=== PATIENT | male | born 1955 | race Caucasian/White ===

== ENCOUNTER 2019-01-11 05:48 | Observation (INO) | payer OTHER ==
[~2019-01-11] VITALS: Ht 180.3 cm; Wt 91.7 kg
[2019-01-11] MEDS ORDERED: ASPIRIN 81 MG CHEW (CHILDREN'S ASA) ONE (06:00)
[2019-01-11 06:13] LABS: BASOPHILS # (AUTO) 0.1 10^3/uL (0.0-0.1); BASOPHILS % (AUTO) 1 % (0-10); EOSINOPHILS # (AUTO) 0.3 10^3/uL (0.0-0.3); EOSINOPHILS % (AUTO) 4 % (0-10); HEMATOCRIT 46 % (40-54); HEMOGLOBIN 15.4 G/DL (13.3-17.7); LYMPHOCYTES # (AUTO) 2.1 X 10^3 (1.0-4.0); LYMPHOCYTES % (AUTO) 32 % (12-44); MEAN CORPUSCULAR HEMOGLOBIN 29 PG (25-34); MEAN CORPUSCULAR HGB CONC 33 G/DL (32-36); MEAN CORPUSCULAR VOLUME 86 FL (80-99); MEAN PLATELET VOLUME 10.1 FL (7.4-10.4); MONOCYTES # (AUTO) 0.7 X 10^3 (0.0-1.0); MONOCYTES % (AUTO) 10 % (0-12); NEUTROPHILS # (AUTO) 3.5 X 10^3 (1.8-7.8); NEUTROPHILS % (AUTO) 53 % (42-75); PLATELET COUNT 258 10^3/uL (130-400); RED CELL DISTRIBUTION WIDTH 14.8 % (10.0-14.5); WHITE BLOOD COUNT 6.6 10^3/uL (4.3-11.0)
--- NOTE | 2019-01-11 06:13 | ED Chest Pain ---
General Stated Complaint: CHEST PAIN Source: patient, spouse Exam Limitations: no limitations History of Present Illness Date Seen by Provider: Jan 11, 2019 Time Seen by Provider: 05:55 Initial Comments The patient presents to ER by private conveyance with chief complaint that he was awoken after rolling over to some 8-9 out of 10 sharp pain in his left chest and radiating to his left shoulder and arm causing some weakness and numbness feeling. He said the pain does not miss any worse on moving his arm or shoulder and is not reproducible by pushing on his chest. 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 His pain started at 0445 and had pretty much ended by the time he arrived to the ER. It was not made worse by exertion. He has no shortness of breath, cough and it is not made worse on deep inspiration. He has no primary history of coronary artery disease but he does have family history but no early onset coronary artery disease. He does not smoke cigarettes nor have diabetes or hypertension but he does take medicines for cholesterol and hypothyroidism. He does not take an aspirin daily. Many years ago he was [place] and had some similar pain to this and because he did not have suspicion insurance he truncated his workup at that time to just an echocardiogram and did not get a stress test done. He says the echocardiogram was normal and that's why he elected not to proceed. He says he has chronic history of bad shoulders but no surgery on his shoulders. He does have a history of acid reflux and so he took 2 chewable Pepto-Bismol this morning but it made no difference in his symptoms. No history of lung disease. His primary care provider is Dr. Nunes. Allergies and Home Medications Allergies Coded Allergies: Penicillins (Verified Allergy, Unknown, 01/11/19) Sulfa (Sulfonamide Antibiotics) (Verified Allergy, Unknown, 01/11/19) Patient Home Medication List Home Medication List Reviewed: Yes Review of Systems Review of Systems Constitutional: No chills, No fever EENTM: No Blurred Vision, No Double Vision Respiratory: Denies Cough, Denies Shortness of Air Cardiovascular: See HPI, Chest Pain; Denies Edema, Denies Irregular Heart Rate , Denies Lightheadedness, Denies Palpitations, Denies Syncope Gastrointestinal: Denies Constipated, Denies Diarrhea, Denies Nausea Genitourinary: Denies Discharge, Denies Drainage Musculoskeletal: No back pain, No joint pain Skin: No pruritus, No rash Psychiatric/Neurological: Denies Anxiety, Denies Depressed, Denies Headache Past Znwdpnt-Kmzahs-Wltpsy Hx Patient Social History Alcohol Use: Denies Use Recreational Drug Use: No Smoking Status: Never a Smoker Recent Foreign Travel: No Contact w/Someone Who Travel: No Physical Exam Vital Signs Vital Signs - First Documented 01/11/19 05:51 Temp 96.3 Pulse 53 Resp 20 B/P (MAP) 159/99 (119) Pulse Ox 97 O2 Delivery Room Air Capillary Refill : Height, Weight, BMI Height: '" Weight: lbs. oz. kg; BMI Method: General Appearance: No Apparent Distress, WD/WN HEENT: PERRL/EOMI, Pharynx Normal, Moist Mucous Membranes Neck: Full Range of Motion, Normal Inspection, Non Tender, Supple Respiratory: Chest Non Tender, Lungs Clear, Normal Breath Sounds, No Accessory Muscle Use, No Respiratory Distress Cardiovascular: Regular Rate, Rhythm, No Edema, Normal Peripheral Pulses Gastrointestinal: Normal Bowel Sounds, Non Tender, Soft Extremity: Normal Capillary Refill, Normal Inspection, Normal Range of Motion, Non Tender, No Calf Tenderness, No Pedal Edema Neurologic/Psychiatric: Alert, Oriented x3, No Motor/Sensory Deficits Skin: Normal Color, Warm/Dry Progress/Results/Core Measures Results/Orders Lab Results Laboratory Tests Test 01/11/19 05:58 Range/Units White Blood Count 6.6 4.3-11.0 10^3/uL Red Blood Count 5.37 4.35-5.85 10^6/uL Hemoglobin 15.4 13.3-17.7 G/DL Hematocrit 46 40-54 % Mean Corpuscular Volume 86 80-99 FL Mean Corpuscular Hemoglobin 29 25-34 PG Mean Corpuscular Hemoglobin Concent 33 32-36 G/DL Red Cell Distribution Width 14.8 H 10.0-14.5 % Platelet Count 258 130-400 10^3/uL Mean Platelet Volume 10.1 7.4-10.4 FL Neutrophils (%) (Auto) 53 42-75 % Lymphocytes (%) (Auto) 32 12-44 % Monocytes (%) (Auto) 10 0-12 % Eosinophils (%) (Auto) 4 0-10 % Basophils (%) (Auto) 1 0-10 % Neutrophils # (Auto) 3.5 1.8-7.8 X 10^3 Lymphocytes # (Auto) 2.1 1.0-4.0 X 10^3 Monocytes # (Auto) 0.7 0.0-1.0 X 10^3 Eosinophils # (Auto) 0.3 0.0-0.3 10^3/uL Basophils # (Auto) 0.1 0.0-0.1 10^3/uL Prothrombin Time 12.7 12.2-14.7 SEC INR Comment 0.9 0.8-1.4 Activated Partial Thromboplast Time 30 24-35 SEC Sodium Level 139 135-145 MMOL/L Potassium Level 4.2 3.6-5.0 MMOL/L Chloride Level 109 H 98-107 MMOL/L Carbon Dioxide Level 19 L 21-32 MMOL/L Anion Gap 11 5-14 MMOL/L Blood Urea Nitrogen 14 7-18 MG/DL Creatinine 0.99 0.60-1.30 MG/DL Estimat Glomerular Filtration Rate > 60 BUN/Creatinine Ratio 14 Glucose Level 101 70-105 MG/DL Calcium Level 8.7 8.5-10.1 MG/DL Corrected Calcium 8.5 8.5-10.1 MG/DL Magnesium Level 2.4 1.8-2.4 MG/DL Total Bilirubin 0.8 0.1-1.0 MG/DL Aspartate Amino Transf (AST/SGOT) 17 5-34 U/L Alanine Aminotransferase (ALT/SGPT) 25 0-55 U/L Alkaline Phosphatase 84 40-136 U/L Myoglobin 36.7 10.0-92.0 NG/ML Troponin I < 0.028 <0.028 NG/ML Total Protein 7.3 6.4-8.2 GM/DL Albumin 4.2 3.2-4.5 GM/DL My Orders Orders - ERIBERTO CARMONA Aspirin Chewable Tablet (Baby Aspirin Ch (01/11/19 06:00) Cbc With Automated Diff (01/11/19 06:04) Magnesium (01/11/19 06:04) Chest 1 View, Ap/Pa Only (01/11/19 06:04) Ekg Tracing (01/11/19 06:04) Cardiac Profile 1 (01/11/19 06:04) Comprehensive Metabolic Panel (01/11/19 06:04) Myoglobin Serum (01/11/19 06:04) Protime With Inr (01/11/19 06:04) Partial Thromboplastin Time (01/11/19 06:04) O2 (01/11/19 06:04) Monitor-Rhythm Ecg Trace Only (01/11/19 06:04) Lipid Panel (01/12/19 06:00) Saline Lock/Iv-Start (01/11/19 06:04) BNP (01/11/19 06:04) Aspirin Chewable Tablet (Baby Aspirin Ch (01/11/19 06:15) Medications Given in ED Current Medications Medications Dose Ordered Sig/Shelly Route Start Time Stop Time Status Last Admin Dose Admin Aspirin 324 mg ONCE ONCE PO 01/11/19 06:15 01/11/19 06:16 DC 01/11/19 06:02 324 MG Vital Signs/I&O 01/11/19 05:51 Temp 96.3 Pulse 53 Resp 20 B/P (MAP) 159/99 (119) Pulse Ox 97 O2 Delivery Room Air Progress Progress Note : Time: 06:14 Progress Note We will give 324 mg aspirin to chew and swallow. He is not currently having any pain so we will not give any nitroglycerin. A GI cocktail will not be very diagnostic but he did try some antacids with no benefit. He has no evidence of respiratory distress, tachycardia, decreased oxygen saturation or clinical history to suggest a pulmonary embolism. His pain is intermittent. While we were talking he did have a momentary brief spike of pain lasting just a few seconds and then going away. It was not movement or exertion. ED ACS is 21 points. Not low risk. This patient is not a candidate for early discharge and should receive a standard chest pain evaluation with delayed troponin testing. Initial ECG Impression Date: Jan 11, 2019 Initial ECG Impression Time: 05:55 Initial ECG Rate: 57 Initial ECG Rhythm: Normal Sinus Initial ECG Intervals: Normal Initial ECG Impression: Normal Initial ECG Comparisson: No Previous ECG Available Comment No ST elevation or depression. Diagnostic Imaging Diagonstic Imaging: Xray Plain Films/CT/US/NM/MRI: chest (1v) Comments No acute cardiopulmonary findings. [facility] [place], [place] NAME: MASHA [facility]URENT [facility] REC#: [id number] PT STATUS: REG ER : 1955 PHYSICIAN: ERIBERTO CARMONA MD ADMIT DATE: 01/11/19/ER Draft Date of Exam:01/11/19 CHEST 1 VIEW, AP/PA ONLY INDICATION: Chest pain. TECHNIQUE: Single view chest 6:13 AM. CORRELATION STUDY: None FINDINGS: The heart size, mediastinal configuration and pulmonary vascularity are within normal limits. Probable hiatal hernia. The lungs are clear with no consolidating infiltrate. There is no significant effusion or pneumothorax. IMPRESSION: 1. No radiographic findings to suggest acute abnormality of the chest. Dictated on workstation # [id number] Dict: 01/11/19616 Trans: 01/11/1918 DO [id number] Interpreted by: GEORGIE ARNOLD DO Electronically signed by: Reviewed: Reviewed by Me Departure Communication (Admissions) Time/Spoke to Admitting Phy: 07:00 Dr. Dc agrees to observe the patient. Time/Spoke to Consulting Phy: 06:30 Dr. Jackson agrees with observation. Impression Primary Impression: Chest pain at rest Disposition: ADMITTED INPATIENT Condition: Stable Admissions Decision to Admit Reason: Admit from ER (General) Decision to Admit/Date: Jan 11, 2019 Time/Decision to Admit Time: 06:22 Departure-Patient Inst. Referrals: CEZAR NUNES MD (PCP/Family) Primary Care Physician Copy Copies To 1: CEZAR NUNES MD, TITUS J Jan 11, 2019 06:13
[2019-01-11] MEDS ORDERED: ASPIRIN 81 MG CHEW (CHILDREN'S ASA) PO ONE (06:15)
--- NOTE | 2019-01-11 06:18 | Diagnostic Imaging Report ---
INDICATION: Chest pain. TECHNIQUE: Single view chest 6:13 AM. CORRELATION STUDY: None FINDINGS: The heart size, mediastinal configuration and pulmonary vascularity are within normal limits. Probable hiatal hernia. The lungs are clear with no consolidating infiltrate. There is no significant effusion or pneumothorax. IMPRESSION: 1. No radiographic findings to suggest acute abnormality of the chest. Dictated by: Dictated on workstation # [id number]
[2019-01-11 06:20] LABS: INR 0.9 (0.8-1.4); PROTHROMBIN TIME PATIENT 12.7 SEC (12.2-14.7)
[2019-01-11 06:27] LABS: ALANINE AMINOTRANSFERASE 25 U/L (0-55); ALBUMIN 4.2 GM/DL (3.2-4.5); ALKALINE PHOSPHATASE 84 U/L (40-136); BILIRUBIN,TOTAL 0.8 MG/DL (0.1-1.0); BUN/CREATININE RATIO 14; CALCIUM 8.7 MG/DL (8.5-10.1); CARBON DIOXIDE 19 MMOL/L (21-32); CHLORIDE 109 MMOL/L (98-107); CREATININE SERUM 0.99 MG/DL (0.60-1.30); GFR ESTIMATED > 60; GLUCOSE 101 MG/DL (70-105); MAGNESIUM 2.4 MG/DL (1.8-2.4); POTASSIUM 4.2 MMOL/L (3.6-5.0); SODIUM 139 MMOL/L (135-145); TOTAL PROTEIN 7.3 GM/DL (6.4-8.2)
[2019-01-11 06:33] LABS: MYOGLOBIN SERUM 36.7 NG/ML (10.0-92.0)
--- NOTE | 2019-01-11 08:12 | Short Stay Summary-Hospitalist ---
History of Present Illness HPI/Chief Complaint Pt is a 63yoCM with a PMH of HLD, BPH, and hypothyroidism who presented to the ER duet o chest pain. He has a history of indigestion and will occasionally get left sided chest pain but it resolves with antacids. He awoke this morning to get out of bed and felt sharp left sided chest pain that he thought was radiating to his left arm. He took his antacids which did not resolve the pain. He did not have any SOB or nausea. He denies a history of heart disease. He denies any SANON or pain with exertion. He denies current chest pain. Source: patient Date Seen 01/11/19 Time Seen by a Provider: 08:08 Attending Physician hSerlyn Meyer MD PCP Natanael Nunes MD Referring Physician Date of Admission Jan 11, 2019 at 07:01 Home Medications & Allergies Home Medications Reviewed patient Home Medication Reconciliation performed by pharmacy medication reconciliations resource technician and/or nursing. Patients Allergies have been reviewed. Allergies Allergies Coded Allergies Penicillins (Verified Allergy, Unknown, 01/11/19) Sulfa (Sulfonamide Antibiotics) (Verified Allergy, Unknown, 01/11/19) Past Pehjtla-Skybwq-Pqekru Hx Past Med/Social Hx: Reviewed Nursing Past Med/Soc Hx Patient Social History Marrital Status: single Alcohol Use: Denies Use Recreational Drug Use: No Smoking Status: Never a Smoker Recent Foreign Travel: No Contact w/other who traveled: No Recent Hopitalizations: No Recent Infectious Disease Expo: No Immunizations Up To Date Tetanus Booster (TDap): Unknown Seasonal Allergies Seasonal Allergies: No Past Medical History Surgeries: Orthopedic (knee) Cardiac: High Cholesterol Genitourinary: Benign Prostatic Hyperpl Gastrointestinal: Gastroesophageal Reflux Endocrine: Hypothyroidsim History of Blood Disorders: No Family History Reviewed Nursing Family Hx Heart Disease (mom and dad) Review of Systems Constitutional: No chills, No fever EENTM: no symptoms reported Respiratory: No cough, No dyspnea on exertion, No orthopnea, No short of breath Cardiovascular: chest pain; No edema, No Hx of Intervention, No palpitations, No vascular heart diseas Gastrointestinal: no symptoms reported Genitourinary: no symptoms reported Musculoskeletal: no symptoms reported Skin: no symptoms reported Psychiatric/Neurological: No Symptoms Reported Physical Exam Physical Exam Vital Signs Vital Signs - First Documented 01/11/19 05:51 Temp 96.3 Pulse 53 Resp 20 B/P (MAP) 159/99 (119) Pulse Ox 97 O2 Delivery Room Air Capillary Refill : Less Than 3 Seconds Height, Weight, BMI Height: 5'11.00" Weight: 215lbs. oz. 97.915087fh; BMI Method:Stated General Appearance: No Apparent Distress, WD/WN HEENT: Normal ENT Inspection, Moist Mucous Membranes; No Scleral Icterus (L), No Scleral Icterus (R) Neck: Normal Inspection; No Thyromegaly Respiratory: Chest Non Tender, Lungs Clear, No Accessory Muscle Use, No Respiratory Distress Cardiovascular: Regular Rate, Rhythm, No Edema, Normal Peripheral Pulses Gastrointestinal: Normal Bowel Sounds, Non Tender, Soft Extremity: Normal Range of Motion, Non Tender, No Pedal Edema Neurologic/Psychiatric: Alert, Oriented x3, No Motor/Sensory Deficits Skin: Normal Color, Warm/Dry Results Results/Procedures Labs Laboratory Tests 01/11/19 05:58 Patient resulted labs reviewed. Imaging: Reviewed Imaging Report Imaging Date of Exam:01/11/19 CHEST 1 VIEW, AP/PA ONLY INDICATION: Chest pain. TECHNIQUE: Single view chest 6:13 AM. CORRELATION STUDY: None FINDINGS: The heart size, mediastinal configuration and pulmonary vascularity are within normal limits. Probable hiatal hernia. The lungs are clear with no consolidating infiltrate. There is no significant effusion or pneumothorax. IMPRESSION: 1. No radiographic findings to suggest acute abnormality of the chest. Short Stay Diagnosis Discharge Diagnosis-Short Stay Admission Diagnosis Chest Pain Final Discharge Diagnosis Atypical Chest Pain Conclusion Plan Chest pain Troponin negative Discussed with Dr Jackson who will plan for stress echo Seems atypical based on history If stress echo negative plan to DC home and continue on treatment for heartburn HLD Continue statin BPH Continue flomax but was mildly bradycardiac on arrival Hypothyroidism Continue synthroid SHERLYN MEYER MD Jan 11, 2019 08:12
[2019-01-11 08:15] VITALS: BP 133/84
[2019-01-11] MEDS ORDERED: ACETAMINOPHEN 500 MG TAB (TYLENOL) PO PRN (08:15)
[2019-01-11] MEDS ORDERED: ONDANSETRON 4 MG/2 ML (SDV) Z0FRAN IV PRN (08:15)
[2019-01-11] MEDS ORDERED: CATHETER FLUSH 10 ML SYR IV PRN (08:15)
[2019-01-11] MEDS ORDERED: morphine INJ 4 MG/ML 1 ML (VIAL/SYRINGE) IVP PRN (08:15)
[2019-01-11] MEDS ORDERED: NITROGLYCERIN 0.4 MG SL TABS BTL 25'S SL PRN (08:15)
--- NOTE | 2019-01-11 08:17 | Consultation-Cardiology ---
HPI-Cardiology Cardiology Consultation Date of Consultation 01/11/19 Date of Admission Time Seen by Provider: 08:14 Indication: chest pain HPI 63 years old gentleman with a strong family history of heart disease, history of hyperlipidemia, woke up around 4 in the morning with chest pain described as sharp in nature on the left side of his chest not radiating not associated with shortness of breath, diaphoresis, lightheadedness. The pain persisted until he came to the emergency room it was waxing and waning, by the time he arrived to the emergency room the pain was better. No further episodes of chest pain. No palpitation, syncope or near syncopal episode. Patient reporting history of heartburn Home Medications & Allergies Allergies: Coded Allergies: Sulfa (Sulfonamide Antibiotics) (Verified Allergy, Intermediate, Hives, ) Penicillins (Unverified Allergy, Unknown, parents told him he was allergic as a child, 01/11/19) Home Medication List Reviewed: Yes JLH-Xjlpbd-Wgkqyh Hx Patient Social History Marital Status: Employed/Student: employed Alcohol Use: Denies Use Recreational Drug Use: No Smoking Status: Never a Smoker Recent Foreign Travel: No Recent Infectious Disease Expo: No Recent Hopitalizations: No Immunizations Up To Date Tetanus Booster (TDap): Unknown Past Medical History past medical history as described below Family Medical History Family Medical Hx noncontributory Review of Systems Constitutional: no symptoms reported, see HPI EENTM: see HPI, no symptoms reported Respiratory: see HPI; No cough, No dyspnea on exertion, No hemoptysis, No orthopnea, No phlegm, No short of breath, No stridor, No wheezing, No other Cardiovascular: see HPI, chest pain; No edema, No Hx of Intervention, No palpitations, No syncope, No vascular heart diseas, No other Gastrointestinal: see HPI, heartburn Genitourinary: no symptoms reported, see HPI Musculoskeletal: no symptoms reported, see HPI Skin: no symptoms reported, see HPI Psychiatric/Neurological: No Symptoms Reported, See HPI Reviewed Test Results Reviewed Test Results Lab Laboratory Tests Test 01/11/19 05:58 Range/Units White Blood Count 6.6 4.3-11.0 10^3/uL Red Blood Count 5.37 4.35-5.85 10^6/uL Hemoglobin 15.4 13.3-17.7 G/DL Hematocrit 46 40-54 % Mean Corpuscular Volume 86 80-99 FL Mean Corpuscular Hemoglobin 29 25-34 PG Mean Corpuscular Hemoglobin Concent 33 32-36 G/DL Red Cell Distribution Width 14.8 H 10.0-14.5 % Platelet Count 258 130-400 10^3/uL Mean Platelet Volume 10.1 7.4-10.4 FL Neutrophils (%) (Auto) 53 42-75 % Lymphocytes (%) (Auto) 32 12-44 % Monocytes (%) (Auto) 10 0-12 % Eosinophils (%) (Auto) 4 0-10 % Basophils (%) (Auto) 1 0-10 % Neutrophils # (Auto) 3.5 1.8-7.8 X 10^3 Lymphocytes # (Auto) 2.1 1.0-4.0 X 10^3 Monocytes # (Auto) 0.7 0.0-1.0 X 10^3 Eosinophils # (Auto) 0.3 0.0-0.3 10^3/uL Basophils # (Auto) 0.1 0.0-0.1 10^3/uL Prothrombin Time 12.7 12.2-14.7 SEC INR Comment 0.9 0.8-1.4 Activated Partial Thromboplast Time 30 24-35 SEC Sodium Level 139 135-145 MMOL/L Potassium Level 4.2 3.6-5.0 MMOL/L Chloride Level 109 H 98-107 MMOL/L Carbon Dioxide Level 19 L 21-32 MMOL/L Anion Gap 11 5-14 MMOL/L Blood Urea Nitrogen 14 7-18 MG/DL Creatinine 0.99 0.60-1.30 MG/DL Estimat Glomerular Filtration Rate > 60 BUN/Creatinine Ratio 14 Glucose Level 101 70-105 MG/DL Calcium Level 8.7 8.5-10.1 MG/DL Corrected Calcium 8.5 8.5-10.1 MG/DL Magnesium Level 2.4 1.8-2.4 MG/DL Total Bilirubin 0.8 0.1-1.0 MG/DL Aspartate Amino Transf (AST/SGOT) 17 5-34 U/L Alanine Aminotransferase (ALT/SGPT) 25 0-55 U/L Alkaline Phosphatase 84 40-136 U/L Myoglobin 36.7 10.0-92.0 NG/ML Troponin I < 0.028 <0.028 NG/ML B-Type Natriuretic Peptide 21.4 <100.0 PG/ML Total Protein 7.3 6.4-8.2 GM/DL Albumin 4.2 3.2-4.5 GM/DL Physical Exam Vital Signs Vital Signs - First Documented 01/11/19 05:51 Temp 96.3 Pulse 53 Resp 20 B/P (MAP) 159/99 (119) Pulse Ox 97 O2 Delivery Room Air Capillary Refill : Less Than 3 Seconds Height, Weight, BMI Height: 5'11.00" Weight: 215lbs. oz. 97.155534jf; BMI Method:Stated General Appearance: No Apparent Distress, WD/WN Eyes: Bilateral Eye Normal Inspection, Bilateral Eye PERRL, Bilateral Eye EOMI HEENT: PERRL/EOMI, TMs Normal, Normal ENT Inspection, Pharynx Normal Neck: Full Range of Motion, Normal Inspection, Non Tender, Supple, Carotid Bruit Respiratory: Chest Non Tender, Lungs Clear, Normal Breath Sounds, No Accessory Muscle Use, No Respiratory Distress Cardiovascular: Regular Rate, Rhythm, No Edema, No Gallop, No JVD, No Murmur, Normal Peripheral Pulses Gastrointestinal: Normal Bowel Sounds, No Organomegaly, No Pulsatile Mass, Non Tender, Soft Back: Normal Inspection, No CVA Tenderness, No Vertebral Tenderness Extremity: Normal Capillary Refill, Normal Inspection, Normal Range of Motion, Non Tender, No Calf Tenderness, No Pedal Edema Neurologic/Psychiatric: Alert, Oriented x3, No Motor/Sensory Deficits, Normal Mood/Affect Skin: Normal Color, Warm/Dry Lymphatic: No Adenopathy A/P-Cardiology Admission Diagnosis Chest pain Hyperlipidemia Hypothyroidism Family history of heart disease Assessment/Plan Chest pain nonspecific etiology, atypical in presentation, EKG did not show any acute changes, first set of cardiac enzymes were negative, length evaluate echo and stress test. Hyperlipidemia, maintained on simvastatin, monitor lipids Hypothyroidism, continue to monitor Strong family history of heart disease History of heartburn, indigestion, start on PPI and monitor ADAIR MOREJON MD Jan 11, 2019 08:17
[2019-01-11 08:30] VITALS: BP 134/76
[2019-01-11 08:45] VITALS: BP 137/94
[2019-01-11 09:00] VITALS: BP 131/76
[2019-01-11] MEDS ORDERED: meTOprolol TARTRATE 50 MG (LOPRESSOR) TAB PO SCH (09:00)
[2019-01-11] MEDS ORDERED: PANTOPRAZOLE 40 MG (PROTONIX) TAB PO SCH (09:00)
[2019-01-11] MEDS ORDERED: lisINopril 5 MG (PRINIVIL) TABLET PO SCH (09:00)
[2019-01-11 09:15] VITALS: BP 115/80
[2019-01-11] MEDS ORDERED: FLU QUADRIvalent (5+ YOA) 2018-2019 (AFLURIA) 0.5 ML IM ONE (10:00)
--- NOTE | 2019-01-11 11:08 | Discharge Inst-Simple/Standard ---
Discharge Inst-Standard Patient Instructions/Follow Up Plan of Care/Instructions/FU: Please continue to take your medications as written. Please follow up with Dr Nunes to follow up this hospital stay and with Dr Jackson in 1 month. Activity as Tolerated: Yes Discharge Diet: Cardiac Diet Return to The Hospital For: Chest pain, shortness of breath, heart racing, if you feel you are getting worse. SHERLYN NELSON MD Jan 11, 2019 11:08
[2019-01-11] MEDS ORDERED: MULT1TAB69 PO (11:09)
[2019-01-11] MEDS ORDERED: FINA5TAB6 PO (11:09)
[2019-01-11] MEDS ORDERED: LEVO50TA PO ×2 (11:09)
[2019-01-11] MEDS ORDERED: FAMO-119 PO (11:09)
[2019-01-11] MEDS ORDERED: TAMS0.4C98 PO (11:09)
[2019-01-11] MEDS ORDERED: OMEP20TA7 PO (11:09)
[2019-01-11] MEDS ORDERED: GLUC-113 PO (11:09)
[2019-01-11] MEDS ORDERED: SIMV40TA4 PO (11:09)
[2019-01-11] MEDS ORDERED: UBID1CAP53 PO (11:09)
[2019-01-11] MEDS ORDERED: OMG1KC PO (11:09)
--- NOTE | 2019-01-11 11:12 | NUR ---
SPOKE WITH THE PATIENT AND HIS ABOUT MEDICATIONS. THEY LISTED WHAT HE IS TAKING AND I CALLED [facility] AND [facility] TO VERIFY THE DOSES. [facility] FILLED: 10-28-18 SYNTHROID 50MCG 2 TABS 2 DAYS A WEEK (MO,FR) AND 1 TAB ALL OTHER DAYS #116 12-18-18 SIMVASTATIN 40MG DAILY #90 11-17-18 FLOMAX 0.4MG 2 DAILY #180 (DECREASED TO 1 DAILY WHEN STARTED OF FINASTERIDE) [facility] FILLED: 12-25-18 FINASTERIDE 5MG DAILY OTC MEDS: OMEPRAZOLE 20MG 2 DAILY PEPCID HS MTV DAILY FISH OIL BID GLUCOSAMINE AND CHONDROITIN DAILY CO Q 10 DAILY
[2019-01-11] MEDS ORDERED: ASPI-983 PO (11:16)
--- NOTE | 2019-01-11 11:38 | NUR ---
DC INSTRUCTIONS GIVEN TO PATIENT. STATES UNDERSTANDING. IV/TELE REMOVED- TOLERATED WELL. DENIES ANY NEEDS/PAIN AT THIS TIME. SAFETY PRECAUTIONS IN PLACE. DC HOME PER PRIVATE AUTOMOBILE.
[2019-01-11] MEDS ORDERED: CATHETER FLUSH 10 ML SYR IV SCH (14:00)
[2019-01-11] MEDS ORDERED: ATORVASTATIN 40 MG (LIPITOR) TABLET PO SCH (21:00)
[2019-01-12] MEDS ORDERED: ASPIRIN E.C. 81 MG (ECOTRIN) TAB PO SCH (09:00)
== END 2019-01-11 11:19 | disposition home or self-care (01) ==
LOC: ER 05:50 → UNDOADMOB 07:01 → ICU 07:01 → EDLOC 08:00 → UNDODISOB 11:19
PROVIDERS: ADMIT Family Medicine; ATTEND Family Medicine
DX: R07.89 Other chest pain (principal); E78.5 Hyperlipidemia, unspecified; E03.9 Hypothyroidism, unspecified; K21.9 Gastro-esophageal reflux disease without esophagitis; N40.0 Benign prostatic hyperplasia without lower urinary tract symptoms; Z82.49 Family history of ischemic heart disease and other diseases of the circulatory system; Z79.82 Long term (current) use of aspirin; Z79.899 Other long term (current) drug therapy
CPT/HCPCS: 36415; 71045; 80053; 83735; 83874; 83880; 84484; 85025; 85610; 85730; 93005; 93041; 93306; 93351